=== PATIENT | male | born 1970 | race Caucasian/White ===

== ENCOUNTER 2017-03-08 08:11 | Outpatient (CLI) | payer BC ==
[2017-03-08 09:27] LABS: ALBUMIN/GLOBULIN RATIO 1.6 (1.0-2.2); BILIRUBIN,TOTAL 0.9 mg/dL (0.2-1.0); BUN - BLOOD UREA NITROGEN 10 mg/dL (6-20); CALCIUM 9.2 mg/dL (8.5-10.3); CARBON DIOXIDE - CO2 27 mmol/L (21-32); CHLORIDE 104 mmol/L (101-111); CHOL/HDL RATIO 3.7 (<5.0); CHOLESTEROL 185 mg/dL; CREATININE 1.2 mg/dL (0.6-1.2); GFR - MDRD 65 (>89); GLUCOSE 103 mg/dL (70-100); HDL CHOLESTEROL 50 mg/dL; LDL/HDL RATIO 2.5 (<3.6); POTASSIUM 3.9 mmol/L (3.5-5.0); SODIUM 139 mmol/L (135-145); TRIGLYCERIDES 61 mg/dL; VLDL CHOLESTEROL 12 mg/dL
[2017-03-12 19:26] LABS: TEST RESULT REPORT (())
[2017-03-13 00:01] LABS: HSV 1 IGG INDEX <0.90 INDEX (()); HSV 1/2 IGM INDEX <0.90 INDEX (()); HSV 2 IGG INDEX <0.90 INDEX (())
== END 2017-03-08 08:12 | disposition home or self-care (01) ==
LOC: LAB 08:11
PROVIDERS: ATTEND Physician Assistant
DX: Z00.00 Encounter for general adult medical examination without abnormal findings (principal); A64 Unspecified sexually transmitted disease; R68.82 Decreased libido; I10 Essential (primary) hypertension; E78.5 Hyperlipidemia, unspecified
CPT/HCPCS: 36415; 80053; 80061; 80074; 81599; 84153; 84402; 84403; 86694; 86695; 86696; 87389; 87491; 87591

== ENCOUNTER 2018-01-30 07:31 | Outpatient (CLI) | END 2018-01-30 07:32 | disposition home or self-care (01) ==

== ENCOUNTER 2018-02-09 08:51 | Outpatient (CLI) | payer BC ==
[2018-02-09 11:47] LABS: INR 1.1 (0.8-1.2); PT - PROTHROMBIN TIME 12.6 secs (9.9-12.6)
== END 2018-02-09 08:52 | disposition home or self-care (01) ==
LOC: LAB.F 08:51
PROVIDERS: ATTEND Physician Assistant
DX: I82.409 Acute embolism and thrombosis of unspecified deep veins of unspecified lower extremity (principal)
CPT/HCPCS: 36415; 85610

== ENCOUNTER 2018-02-26 16:14 | Outpatient (CLI) | payer BC ==
[2018-02-26 18:15] LABS: INR 1.1 (0.8-1.2); PT - PROTHROMBIN TIME 12.9 secs (9.9-12.6)
== END 2018-02-26 16:15 | disposition home or self-care (01) ==
LOC: LAB.F 16:14
PROVIDERS: ATTEND Physician Assistant
DX: I82.409 Acute embolism and thrombosis of unspecified deep veins of unspecified lower extremity (principal)
CPT/HCPCS: 36415; 85610

== ENCOUNTER 2018-11-04 13:18 | Outpatient (CLI) | payer BC ==
[2018-11-04 18:25] LABS: BASOPHILS % (AUTO) 0.5 %; EOSINOPHILS # (AUTO) 0.1 10^3/uL (0.0-0.7); EOSINOPHILS % (AUTO) 1.8 %; HGB - HEMOGLOBIN 15.9 g/dL (14.0-18.0); LYMPHOCYTES # (AUTO) 1.4 10^3/uL (1.5-3.5); LYMPHOCYTES % (AUTO) 30.9 %; MEAN CORPUSCULAR HEMOGLOBIN 31.2 pg (27.0-31.0); MEAN CORPUSCULAR HGB CONC 33.5 g/dL (32.0-36.0); MEAN CORPUSCULAR VOLUME 93.2 fL (80.0-94.0); MONOCYTES # (AUTO) 0.4 10^3/uL (0.0-1.0); NEUTROPHILS # (AUTO) 2.5 10^3/uL (1.5-6.6); NEUTROPHILS % (AUTO) 57.8 %; PLT - PLATELET COUNT 169 10^3/uL (130-450); RED BLOOD COUNT 5.11 10^6/uL (4.70-6.10); RED CELL DISTRIBUTION WIDTH 13.7 % (12.0-15.0); WHITE BLOOD COUNT 4.4 x10^3/uL (4.8-10.8)
[2018-11-04 18:52] LABS: ALBUMIN 4.1 g/dL (3.2-5.5); ALBUMIN/GLOBULIN RATIO 1.5 (1.0-2.2); ALKALINE PHOSPHATASE 40 IU/L (42-121); ALT ALANINE AMINOTRANSFERASE 25 IU/L (10-60); AST ASPARTATE AMINOTRANSFERASE 22 IU/L (10-42); BILIRUBIN,TOTAL 0.8 mg/dL (0.2-1.0); BUN - BLOOD UREA NITROGEN 13 mg/dL (6-20); CALCIUM 9.2 mg/dL (8.5-10.3); CARBON DIOXIDE - CO2 25 mmol/L (21-32); CHLORIDE 103 mmol/L (101-111); CHOL/HDL RATIO 4.7 (<5.0); CHOLESTEROL 221 mg/dL; CREATININE 1.1 mg/dL (0.6-1.2); GFR - MDRD 71 (>89); GLUCOSE 115 mg/dL (70-100); HDL CHOLESTEROL 47 mg/dL; LDL CHOLESTEROL,CALCULATED 144 mg/dL; LDL/HDL RATIO 3.1 (<3.6); SODIUM 136 mmol/L (135-145); TOTAL PROTEIN 6.8 g/dL (6.7-8.2); VLDL CHOLESTEROL 30 mg/dL
== END 2018-11-04 13:19 | disposition home or self-care (01) ==
LOC: LAB.F 13:18
PROVIDERS: ATTEND Internal Medicine
DX: F10.10 Alcohol abuse, uncomplicated (principal); Z13.6 Encounter for screening for cardiovascular disorders
CPT/HCPCS: 36415; 80053; 80061; 83721; 85025

== ENCOUNTER 2019-06-03 15:39 | Outpatient (CLI) | payer OTHER, BC ==
--- NOTE | 2019-06-04 16:02 | XRAY Report ---
Reason: PAIN IN RIGHT THUMB Procedure Date: 06/03/2019 Accession Number: [id number] / [id number] Procedure: XRS - Hand 3 View RT CPT Code: FULL RESULT: EXAM: RIGHT HAND RADIOGRAPHY EXAM DATE: 06/03/2019 03:48 PM. CLINICAL HISTORY: Pain in right thumb. COMPARISON: None. TECHNIQUE: 3 views. FINDINGS: Bones: Surgical pain in the fifth metacarpal appears unremarkable. Possible old ulnar styloid fracture versus congenital variant. No fractures or bone lesions. Joints: Normal. No subluxations. Soft Tissues: Normal. No soft tissue swelling. IMPRESSION: 1. Right thumb appears normal. 2. Previous fifth metacarpal surgery. RADIA
== END 2019-06-03 15:40 | disposition home or self-care (01) ==
LOC: DI.S 15:39
PROVIDERS: ATTEND Nurse Practitioner Family
DX: M79.644 Pain in right finger(s) (principal)

== ENCOUNTER 2019-12-30 17:18 | Outpatient (CLI) | payer BC | END 2019-12-30 17:19 | disposition home or self-care (01) | LOC: COV 17:18 | PROVIDERS: ATTEND Family Medicine | DX: R05 Cough (principal); R50.9 Fever, unspecified; M79.10 Myalgia, unspecified site; R53.83 Other fatigue | CPT/HCPCS: 81599 ==

== ENCOUNTER 2020-09-27 17:11 | Outpatient (CLI) | payer BC ==
--- NOTE | 2020-09-27 18:18 | CT Report ---
PROCEDURE: LUMBAR SPINE WO INDICATIONS: ACUTE LOW BACK PAIN CONCERN FOR DISC RUPTURE, STENOSIS TECHNIQUE: Noncontrast 3 mm thick sections acquired from the T12 level to the sacrum. Sagittal and coronal refo rmats were constructed. For radiation dose reduction, the following was used: automated exposure co ntrol, adjustment of mA and/or kV according to patient size. COMPARISON: None. FINDINGS: Image quality: Excellent. Bones: There is straightening of the normal lumbar lordosis, but otherwise normal bony alignment. N o acute vertebral body compression fractures. 1.2 cm sclerotic lesion in the right ilium adjacent to the sacroiliac joint, and 1 more caudally above the acetabulum. There is spina bifida occulta at S1. Degenerative joint space loss of the left sacroiliac joint and mild spurring. Central spinal caliber is of normal overall caliber. No pars defects. T12-L1: Normal in appearance. L1-L2: Normal in appearance. L2-L3: Normal in appearance. L3-L4: Mild disc height loss and moderate circumferential disc bulge. There is moderate central can al stenosis. Moderate right and mild left foraminal narrowing. L4-L5: Minor disc height loss and minor posterior disc bulge. L5-S1: Mild, chronic appearing disc degeneration and broad-based posterior disc bulge. There are sc attered calcification within the disc. Mild endplate osteophyte causes moderate bilateral foraminal n arrowing but no significant central canal stenosis. Soft tissues: No retroperitoneal masses or hematomas. Incidental note made of calcifications in the spleen consistent with granulomas. Visualized aorta is normal in caliber. IMPRESSION: 1. Mild to moderate degenerative degenerative disc changes from L3 through S1 with a possible moderat e central canal stenosis at the L3-4 level. 2. Moderate foraminal narrowing on the right at L3 and bilaterally at L5-S1. 3. No focal disc herniation visible. 4. For further detail of the neural foraminal openings, MR of the lumbar spine is recommended. 5. Degeneration of the left sacroiliac joint. Reviewed by: Marla Herrera MD on 09/27/2020 5:17 PM [place] Approved by: Marla Herrera MD on 09/27/2020 5:17 PM [place] Station ID: [id number]
== END 2020-09-27 17:12 | disposition home or self-care (01) ==
LOC: DI 17:11
PROVIDERS: ATTEND Nurse Practitioner Family
DX: M51.36 Other intervertebral disc degeneration, lumbar region (principal); M48.061 Spinal stenosis, lumbar region without neurogenic claudication; M51.37 Other intervertebral disc degeneration, lumbosacral region; M47.898 Other spondylosis, sacral and sacrococcygeal region

== ENCOUNTER 2020-10-04 15:09 | Outpatient (CLI) | payer BC ==
--- NOTE | 2020-10-04 15:53 | XRAY Report ---
PROCEDURE: Hip w/Pelvis 2-3V RT INDICATIONS: PAIN IN RIGHT HIP JOINT TECHNIQUE: AP pelvis with lateral view(s) of the right hip(s). COMPARISON: None. FINDINGS: Bones: No fractures or dislocations. Pelvic ring appears intact. No suspicious bony lesions. Mild osseous hypertrophy noted in the hips bilaterally. Soft tissues: The visualized bowel gas pattern is normal. No suspicious soft tissue calcifications. IMPRESSION: Mild bilateral hip osteoarthritis. Reviewed by: Margoth Morley MD, PhD on 10/04/2020 3:52 PM PST Approved by: Margoth Morley MD, PhD on 10/04/2020 3:52 PM PST Station ID: [id number]
== END 2020-10-04 15:10 | disposition home or self-care (01) ==
LOC: DI.S 15:09
PROVIDERS: ATTEND Nurse Practitioner Family
DX: M25.551 Pain in right hip (principal); M16.0 Bilateral primary osteoarthritis of hip

== ENCOUNTER 2020-10-19 12:11 | Outpatient (CLI) | payer BC ==
--- NOTE | 2020-10-19 16:17 | MRI Report ---
PROCEDURE: Lumbar Spine W/O INDICATIONS: Spinal stenosis TECHNIQUE: Noncontrast sagittal T1 spin echo and T2 fast echo, sagittal STIR, axial T1 and T2 fast spin echo thr ough the lumbar spine. In cases with scoliosis, additional coronal T2 fast spin echo may be performe d. COMPARISON: Lumbar spine CT 09/27/2020 FINDINGS: Image quality: Excellent. Alignment and Curvature: There is normal bony alignment. Bone Marrow: Marrow is of normal overall signal. No acute vertebral body compression fractures. Spinal Cord: Conus medullaris terminates at the normal level. Visualized cord demonstrates normal s ignal and size. Paraspinous Soft Tissues: No paravertebral masses. T12-L1: Normal in appearance. L1-L2: Normal in appearance. L2-L3: Normal in appearance. L3-L4: Disc desiccation and disc height loss. Diffuse disc bulge and a superimposed broad-based poste rior disc protrusion flatten and indent the ventral thecal sac. Disc material abuts and slightly disp laces the descending L4 nerve roots within both subarticular zones. Foraminal components of the disc bulge contribute to moderate bilateral neural foraminal stenosis in conjunction with neural foraminal collapse related to disc height loss. L4-L5: Disc desiccation and disc height loss. Cervical vertebral disc bulge and a superimposed broa d-based posterior disc protrusion flattening the ventral thecal sac. No mass effect upon the traversi ng L5 nerve roots. Mild bilateral neural foraminal stenosis due to foraminal components of the disc b ulge. L5-S1: Central disc protrusion flattens and indents the ventral thecal sac. Mild mass effect upon the descending S1 nerve roots. Mild bilateral neural foraminal stenosis related to foraminal components of the disc bulge. IMPRESSION: Degenerative changes from L3-L4 through L5-S1, similar to 09/27/2020 CT examination.. Reviewed by: Jarvis Rob MD on 10/19/2020 4:16 PM PST Approved by: Jarvis Rob MD on 10/19/2020 4:16 PM PST Station ID: [id number]
--- NOTE | 2020-10-19 17:09 | MRI Report ---
PROCEDURE: Hip RT W/O INDICATIONS: PAIN IN R HIP TECHNIQUE: Noncontrast coronal T1 spin echo and STIR through the bony pelvis. Coronal and axial T2 fast spin ec ho with fat saturation, sagittal T1 spin echo, and oblique axial T2 fast spin echo with fat saturatio n through the hip. COMPARISON: None. FINDINGS: Image quality: Excellent. Bones and joints: Asymmetric right worse than left bilateral hip joint osteoarthritic changes are see n with superior joint space narrowing and subchondral sclerosis. No intraosseous lesions or fractures . No avascular necrosis of the femoral heads. The visualized lower lumbar spine appears normally al igned. Tendons: The gluteus medius and minimus tendons appear intact, without associated muscle atrophy. T he iliopsoas tendon appears intact, without adjacent bursal fluid collections. The origin of the ham string tendon is intact at the ischial tuberosity. Labrum and cartilage: There is suggestion of superior anterior right hip labral tear with tiny adjace nt 2 mm perilabral cyst. Diffuse thinning of cartilage along right femoral head is seen. The alpha an gle of the femur is within normal limits at less than 55 degrees. Soft tissues: Visualized muscles demonstrate normal bulk and internal signal. The proximal sciatic neurovascular bundle appears normal adjacent to the hamstring tendons. No free pelvic fluid. Bladde r wall thickness is normal. Genitourinary structures and bowel loops appear normal where visualized. IMPRESSION: 1. Asymmetric right worse than left bilateral hip joint osteoarthritis. No fracture or dislocation. N o evidence of avascular necrosis. 2. Focal superior anterior right hip labral tear with a tiny adjacent perilabral cyst. 3. No gross muscle or tendon signal abnormality. Reviewed by: Igor George MD on 10/19/2020 5:08 PM PST Approved by: Igor George MD on 10/19/2020 5:08 PM PST Station ID: [id number]
== END 2020-10-19 12:12 | disposition home or self-care (01) ==
LOC: DI 12:11
PROVIDERS: ATTEND Nurse Practitioner Family
DX: M51.36 Other intervertebral disc degeneration, lumbar region (principal); M48.061 Spinal stenosis, lumbar region without neurogenic claudication; M51.26 Other intervertebral disc displacement, lumbar region; M51.27 Other intervertebral disc displacement, lumbosacral region; M48.07 Spinal stenosis, lumbosacral region; M16.0 Bilateral primary osteoarthritis of hip; S73.191A Other sprain of right hip, initial encounter; M71.351 Other bursal cyst, right hip

== ENCOUNTER 2021-06-15 07:56 | Outpatient (CLI) | payer BC ==
--- NOTE | 2021-06-15 08:24 | XRAY Report ---
PROCEDURE: Chest 2 View X-Ray INDICATIONS: CHEST PAIN TECHNIQUE: 2 view(s) of the chest. COMPARISON: Reference is made to the chest radiograph report dated November 06, 2011. FINDINGS: SUPPORT DEVICES: None. LUNGS/PLEURA: Blunting of the left costophrenic sulcus, which may reflect pleural fluid and/or a pneu mamadou infiltrate. The right lung is well aerated. No pneumothorax. MEDIASTINUM: The cardiomediastinal silhouette is within normal limits. BONES/SOFT TISSUES: No acute abnormality. IMPRESSION: 1.Small right pleural effusion and/or pneumonic infiltrate. Reviewed by: Justin Carbajal MD on 06/15/2021 8:23 AM PDT Approved by: Justin Carbajal MD on 06/15/2021 8:23 AM PDT Station ID: [id number]
== END 2021-06-15 07:57 | disposition home or self-care (01) ==
LOC: DI.S 07:56
DX: R91.8 Other nonspecific abnormal finding of lung field (principal)

== ENCOUNTER 2021-08-14 19:48 | Outpatient (CLI) | payer OTHER, BC ==
--- NOTE | 2021-08-14 20:41 | Ultrasound Report ---
PROCEDURE: Duplex Ext Veins Right INDICATIONS: PAIN IN RIGHT LEG TECHNIQUE: Real-time imaging, as well as color and pulse Doppler interrogation, were performed of the lower extr emity deep veins from the inguinal ligament to the popliteal fossa. COMPARISON: None. FINDINGS: The deep veins are normally compressible, and free of intraluminal thrombus. Color and pu lse Doppler demonstrate normal phasic intraluminal flow. There is normal augmentation response to di stal compression maneuver. Fat-containing right inguinal hernia. IMPRESSION: No evidence of right lower extremity DVT. Fat-containing right inguinal hernia. Reviewed by: Maximino Tom MD on 08/14/2021 8:40 PM PST Approved by: Maximino Tom MD on 08/14/2021 8:40 PM PST Station ID: [id number]
== END 2021-08-14 19:49 | disposition home or self-care (01) ==
LOC: DI 19:48
PROVIDERS: ATTEND Nurse Practitioner Family
DX: M79.604 Pain in right leg (principal); K40.90 Unilateral inguinal hernia, without obstruction or gangrene, not specified as recurrent

== ENCOUNTER 2021-09-14 10:36 | Outpatient (CLI) | payer OTHER, BC ==
[2021-09-14] MEDS ORDERED: IOVERSOL 320 100 ML VIAL IVP ONE ×2 (10:53→12:13)
[2021-09-14 11:33] LABS: CREATININE 1.4 mg/dL (0.6-1.2)
[2021-09-14] MEDS ORDERED: IOPAMIDOL-300 50 ML VIAL PO ONE (12:13)
--- NOTE | 2021-09-14 16:48 | CT Report ---
PROCEDURE: ANGIO CHEST W/WO INDICATIONS: PULMONARY EMBOLISM CONTRAST: IV CONTRAST: Optiray 320 ml: 80 PO CONTRAST: *NO PO CONTRAST TECHNIQUE: After the administration of intravenous contrast, 2 mm axial images were acquired from the pulmonary apices to the posterior costophrenic angles during the arterial phase. In addition, 1 mm lung kernel and 5 mm soft tissue kernel reconstructions were performed. 3-dimensional coronal oblique maximum int ensity projection (MIP) reformats, 8 mm axial MIP, and 5 mm coronal and sagittal MPR reformats were t hen performed through the thorax. For radiation dose reduction, the following was used: automated exp osure control, adjustment of mA and/or kV according to patient size. COMPARISON: None FINDINGS: Image quality: Excellent. Pulmonary arteries: Pulmonary arteries are normal in size, and demonstrate no intraluminal filling d efects to suggest central pulmonary embolism. Lungs and pleura: Lungs are clear. There is a 9 mm nodular groundglass opacity in the right middle l obe series 6 image 204. No pleural effusions or pneumothorax. Central and peripheral airways are pat ent. Mediastinum: Heart size is normal, without pericardial effusion. No mediastinal or hilar adenopathy . Thoracic aorta is normal in caliber and enhancement. Esophagus is normal in caliber, without hiat al hernia. Bones and chest wall: No suspicious bony lesions. Ribs and thoracic spine appear intact throughout. No axillary or supraclavicular adenopathy. The thyroid is normal in size and there are no incident al findings. Abdomen: Visualized upper abdominal solid organs appear normal in the early arterial phase of enhanc ement. IMPRESSION: 1. No pulmonary embolism. 2. 9 mm right middle lobe groundglass opacity. No prior imaging is available for comparison. Recommen d comparison to prior studies if available to determine long-term stability. If no prior imaging is a vailable, recommend follow-up CT in 3 months to confirm persistence then annual follow-up for 3 years . Reviewed by: Carroll Reddy on 09/14/2021 4:47 PM PST Approved by: Carroll Reddy on 09/14/2021 4:47 PM PST Station ID: [id number]
== END 2021-09-14 10:37 | disposition home or self-care (01) ==
LOC: DI 10:36
PROVIDERS: ATTEND Nurse Practitioner Family
DX: I26.99 Other pulmonary embolism without acute cor pulmonale (principal); R91.8 Other nonspecific abnormal finding of lung field
CPT/HCPCS: 36415; 71275; 82565; Q9967

== ENCOUNTER 2021-12-22 07:49 | Outpatient (CLI) | payer OTHER, BC ==
[2021-12-22 08:25] LABS: CALCIUM 9.3 mg/dL (8.5-10.3); CREATININE 1.3 mg/dL (0.6-1.2); POTASSIUM 3.9 mmol/L (3.5-5.0)
[2021-12-22] MEDS ORDERED: IOPAMIDOL-300 100 ML VIAL ONE (09:26)
[2021-12-22] MEDS ORDERED: IOPAMIDOL-300 100 ML VIAL IVP ONE (10:37)
--- NOTE | 2021-12-22 10:46 | CT Report ---
PROCEDURE: ANGIO CHEST W/WO INDICATIONS: PULMONARY EMBOLISM CONTRAST: IV CONTRAST: Isovue 300 ml: 80 PO CONTRAST: *NO PO CONTRAST TECHNIQUE: After the administration of intravenous contrast, 2 mm axial images were acquired from the pulmonary apices to the posterior costophrenic angles during the arterial phase. In addition, 1 mm lung kernel and 5 mm soft tissue kernel reconstructions were performed. 3-dimensional coronal oblique maximum int ensity projection (MIP) reformats, 8 mm axial MIP, and 5 mm coronal and sagittal MPR reformats were t hen performed through the thorax. For radiation dose reduction, the following was used: automated exp osure control, adjustment of mA and/or kV according to patient size. COMPARISON: 09/14/2021 CT examination. FINDINGS: Image quality: Excellent. Pulmonary arteries: Pulmonary arteries are normal in size, and demonstrate no intraluminal filling d efects to suggest central pulmonary embolism. Lungs and pleura: Lungs are clear. No pleural effusions or pneumothorax. Central and peripheral ai rways are patent. Mediastinum: Heart size is normal, without pericardial effusion. No mediastinal or hilar adenopathy . Thoracic aorta is normal in caliber and enhancement. Esophagus is normal in caliber, without hiat al hernia. Bones and chest wall: No suspicious bony lesions. Ribs and thoracic spine appear intact throughout. No axillary or supraclavicular adenopathy. The thyroid is normal in size and there are no incident al findings. Abdomen: Portions of the upper abdomen demonstrate scattered hepatosplenic calcifications. IMPRESSION: 1. No evidence of pulmonary embolus. 2. Remote granulomatous disease. 3. Resolution of previously seen right middle lobe groundglass nodule. CLINICAL RECOMMENDATION STATEMENTS: In patients <35 years with an ITN detected on CT, MRI, or extrathyroidal ultrasound, the Committee re commends further evaluation with dedicated thyroid ultrasound if the nodule is "e1 cm and has no susp icious imaging features, and if the patient has normal life expectancy. In patients "e35 years with an ITN detected on CT, MRI, or extrathyroidal ultrasound, the Committee r ecommends further evaluation with dedicated thyroid ultrasound if the nodule is "e1.5 cm and has no s uspicious imaging features, and if the patient has normal life expectancy. (ACR, 2014) Reviewed by: Maximino Tom MD on 12/22/2021 10:44 AM PDT Approved by: Maximino Tom MD on 12/22/2021 10:44 AM PDT Station ID: [id number]
== END 2021-12-22 07:50 | disposition home or self-care (01) ==
LOC: LAB 07:49
PROVIDERS: ATTEND Nurse Practitioner Family
DX: I26.99 Other pulmonary embolism without acute cor pulmonale (principal); R06.09 Other forms of dyspnea; J84.10 Pulmonary fibrosis, unspecified
CPT/HCPCS: 36415; 71275; 80048; Q9967

== ENCOUNTER 2022-01-17 16:19 | Outpatient (CLI) | payer OTHER, BC | END 2022-01-17 16:20 | disposition home or self-care (01) | LOC: DI 16:19 | PROVIDERS: ATTEND Nurse Practitioner Family | DX: R06.09 Other forms of dyspnea (principal); I77.810 Thoracic aortic ectasia | CPT/HCPCS: 93306 ==

== ENCOUNTER 2022-01-22 14:12 | Outpatient (CLI) | payer OTHER, BC ==
--- NOTE | 2022-01-22 15:58 | Ultrasound Report ---
PROCEDURE: Ankle Brachial Index INDICATIONS: EDEMA TECHNIQUE: Ankle-brachial indices were obtained bilaterally and recorded. COMPARISONS: None. FINDINGS: Right ankle brachial index (AMAYA): 1.2 Left ankle brachial index (MAAYA): 1.2 IMPRESSION: Normal exam. Reviewed by: Estefanía Ascencio MD on 01/22/2022 3:57 PM PDT Approved by: Estefanía Ascencio MD on 01/22/2022 3:57 PM PDT Station ID: [id number]
--- NOTE | 2022-01-22 16:10 | Ultrasound Report ---
PROCEDURE: Duplex Ext Veins Right INDICATIONS: EDEMA TECHNIQUE: Real-time imaging, as well as color and pulse Doppler interrogation, were performed of the lower extr emity deep veins from the inguinal ligament to the popliteal fossa. COMPARISON: None. FINDINGS: The deep veins are normally compressible, and free of intraluminal thrombus. Color and pu lse Doppler demonstrate normal phasic intraluminal flow. There is normal augmentation response to di stal compression maneuver. Deep system reflux is noted in the right common femoral vein, measuring 1.2 seconds. Right greater sa phenous vein reflux measures 1.5 seconds. IMPRESSION: 1. No evidence of deep venous thrombosis, right lower extremity. 2. There is deep system valvular reflux and superficial system valvular reflux, as well. Reviewed by: Juan Ramon Joseph MD on 01/22/2022 4:09 PM PDT Approved by: Juan Ramon Joseph MD on 01/22/2022 4:09 PM PDT Station ID: [id number]
--- NOTE | 2022-01-22 16:17 | Ultrasound Report ---
PROCEDURE: Duplex Lwr Ext Arterial RT INDICATIONS: EDEMA TECHNIQUE: Color and pulse Doppler interrogation was performed of the right lower extremity arterial system, wit h image documentation. COMPARISON: None FINDINGS: Common femoral artery: 65 cm/sec, with triphasic flow. Deep femoral artery: 55 cm/sec, with triphasic flow. Proximal superficial femoral artery: 78 cm/sec, with triphasic flow. Mid superficial femoral artery: 77 cm/sec, with triphasic flow. Distal superficial femoral artery: 48 cm/sec, with triphasic flow. Popliteal artery: 45 cm/sec, with triphasic flow. Posterior tibial artery: 84 cm/sec, with triphasic flow. Anterior tibial artery/dorsalis pedis: 36 cm/sec, with triphasic flow. De La Fuente-scale imaging description: Negative IMPRESSION: No evidence of arterial insufficiency to the right lower extremity. Reviewed by: Maximino Tom MD on 01/22/2022 4:16 PM PDT Approved by: Maximino Tom MD on 01/22/2022 4:16 PM PDT Station ID: [id number]
== END 2022-01-22 14:13 | disposition home or self-care (01) ==
LOC: DI 14:12
PROVIDERS: ATTEND Nurse Practitioner Family
DX: R60.0 Localized edema (principal)
CPT/HCPCS: 93922

== ENCOUNTER 2022-05-22 09:18 | Outpatient (CLI) | payer OTHER | END 2022-05-22 09:19 | disposition home or self-care (01) | LOC: DI 09:18 | PROVIDERS: ATTEND Emergency Medicine | DX: I07.1 Rheumatic tricuspid insufficiency (principal); U09.9 Post COVID-19 condition, unspecified; R60.0 Localized edema; R06.00 Dyspnea, unspecified; Z86.711 Personal history of pulmonary embolism | CPT/HCPCS: 93306 ==

== ENCOUNTER 2022-05-22 09:20 | Outpatient (CLI) | payer OTHER, BC ==
[2022-05-22] MEDS ORDERED: ALBUTEROL 1 PUFF INH STA (13:48)
== END 2022-05-22 09:21 | disposition home or self-care (01) ==
LOC: RT 09:20
PROVIDERS: ATTEND Emergency Medicine
DX: U09.9 Post COVID-19 condition, unspecified (principal)
CPT/HCPCS: 94060; 94727; 94729

== ENCOUNTER 2022-11-06 13:39 | Outpatient (CLI) | payer OTHER ==
[2022-11-06 14:01] LABS: CREATININE 1.3 mg/dL (0.6-1.2)
[2022-11-06] MEDS ORDERED: iohexoL-300 100 ML VIAL ONE (15:18)
--- NOTE | 2022-11-06 15:35 | Ultrasound Report ---
PROCEDURE: Duplex Ext Veins Right INDICATIONS: PAIN IN RIGHT THIGH TECHNIQUE: Real-time imaging, as well as color and pulse Doppler interrogation, were performed of the lower extr emity deep veins from the inguinal ligament to the popliteal fossa. COMPARISON: 01/22/2022. FINDINGS: Nonocclusive deep venous thrombosis present in one of the posterior tibial veins, proximal -mid. Remainder of the deep veins are patent. Superficial thrombus also present within the greater sa phenous vein in the mid thigh. IMPRESSION: 1. Nonocclusive deep venous thrombosis present in one of the posterior tibial veins. 2. Superficial venous thrombosis also present in the greater saphenous vein. Preliminary results conveyed to Cathie GRANADOS by the brick stacker at 1440 hours 11/06/2022. Reviewed by: Ayan Corea MD on 11/06/2022 3:33 PM PDT Approved by: Ayan Corea MD on 11/06/2022 3:33 PM PDT Station ID: [id number]
--- NOTE | 2022-11-06 16:05 | CT Report ---
PROCEDURE: ANGIO CHEST W/WO INDICATIONS: CHEST PAIN CONTRAST: 80mL Omni 300 TECHNIQUE: After the administration of intravenous contrast, 2 mm axial images were acquired from the pulmonary apices to the posterior costophrenic angles during the arterial phase. In addition, 1 mm lung kernel and 5 mm soft tissue kernel reconstructions were performed. 3-dimensional coronal oblique maximum int ensity projection (MIP) reformats, 8 mm axial MIP, and 5 mm coronal and sagittal MPR reformats were t hen performed through the thorax. For radiation dose reduction, the following was used: automated exp osure control, adjustment of mA and/or kV according to patient size. COMPARISON: CT angiogram of the chest 12/22/2021. FINDINGS: Pulmonary arteries: Right upper lobe segmental pulmonary embolism present. Lungs and pleura: No consolidation, pleural effusions or pneumothorax. Mediastinum: No pericardial effusion. Thoracic aorta is normal in caliber. Esophagus is normal in caliber. RV:LV ratio < 1. Bones and chest wall: Multilevel degenerative change of the visualized spine. No axillary or suprac lavicular adenopathy. Abdomen: Hepatic and splenic calcifications present compatible with prior granulomatous disease. IMPRESSION: Right upper lobe segmental pulmonary embolism. Results discussed with Lulu Chowdary MA by Dr. Corea at 1548 hours on 11/06/2022. Patient will be sent to the emergency room per Marylin Frias PA-C. Reviewed by: Ayan Corea MD on 11/06/2022 4:04 PM PDT Approved by: Ayan Corea MD on 11/06/2022 4:04 PM PDT Station ID: [id number]
[2022-11-06] MEDS ORDERED: iohexoL-300 100 ML VIAL IVP ONE (17:13)
== END 2022-11-06 13:40 | disposition home or self-care (01) ==
LOC: LAB 13:39
PROVIDERS: ATTEND Nurse Practitioner Family
DX: I26.99 Other pulmonary embolism without acute cor pulmonale (principal); I82.441 Acute embolism and thrombosis of right tibial vein; I82.811 Embolism and thrombosis of superficial veins of right lower extremity
CPT/HCPCS: 36415; 82565

== ENCOUNTER 2022-11-06 16:14 | Emergency (ER) | payer OTHER, BC ==
[2022-11-06 16:32] VITALS: BP 177/108
[2022-11-06] MEDS ORDERED: ENOXAPARIN 100 MG/ML SYRINGE SUBQ STA (17:02)
--- NOTE | 2022-11-06 17:48 | ED Physician Documentation ---
PD HPI DYSPNEA - Stated complaint Stated Complaint: PAIN IN RT LEG, SOA - Chief complaint Chief Complaint: Cardiac - History obtained from History obtained from: Patient - Additional information Additional information: This is a 51-year-old male with a past medical history of pulmonary embolus, no longer on anticoagulation who presents from the radiology department after he was found to have pulmonary emboli on CT scanning today. He had been following with his PCP for mild shortness of breath intermittent over the last couple weeks as well as right leg pain and mild swelling. He had a ultrasound today which showed a right calf DVT and he actually has already spoken with his PCP who has prescribed Xarelto for the patient however then he went for his CT scan which also showed a blood clot and the radiologist called the office but they were closed therefore the patient was sent to the ER. He has no new symptoms, states he feels fine otherwise, was out eating pizza when he got the call to come into the ER for evaluation. He is not currently having any chest pain, denies any current shortness of breath though does note mild shortness of breath intermittently with activity. Has not had any cough, congestion, abdominal pain nausea vomiting or diarrhea. He has not had any lower extremity redness or signs of infection. He denies any recent immobility, surgeries, long travel. He states that he already has seen a "coagulation doctor" who apparently told him he had no signs of hypercoagulability and it was thought that him that his prior PE was induced by a COVID-vaccine. He only completed a few months of anticoagulation but for was stopped as it was thought to be provoked. Review of Systems Constitutional: reports: Reviewed and negative, Other (All other systems were reviewed and are negative except as described in HPI.) PD PAST MEDICAL HISTORY - Past Medical History Past Medical History: Yes Cardiovascular: Hypertension, Deep vein thrombosis, Pulmonary embolism GI: GERD - Past Surgical History Past Surgical History: Yes - Present Medications Home Medications: Ambulatory Orders Medication Instructions Recorded Confirmed Amoxicillin/Potassium Clav 1 each PO Q12H #10 tablet 10/15/16 [Augmentin 875-125 Tablet] Rivaroxaban [Xarelto] 15 mg PO BID #42 tablet 11/06/22 - Allergies Allergies/Adverse Reactions: Allergies Allergy/AdvReac Type Severity Reaction Status Date / Time No Known Drug Allergies Allergy Verified 11/06/22 16:32 - Social History Does the pt smoke?: No Smoking Status: Never smoker Does the pt drink ETOH?: No Does the pt have substance abuse?: No - Immunizations Immunizations are current?: Yes - POLST Patient has POLST: No PD ED PE NORMAL - Vitals Vital signs reviewed: Yes - General General: Alert and oriented X 3, No acute distress, Well developed/nourished, Other (Very pleasant and conversant, currently eating a piece of pizza, and ambulating about the room.) - HEENT HEENT: Atraumatic, Moist mucous membranes - Neck Neck: Supple, no meningeal sign, No JVD - Cardiac Cardiac: RRR, No murmur, No gallop, No rub - Respiratory Respiratory: No respiratory distress, Clear bilaterally - Abdomen Abdomen: Normal bowel sounds, Soft, Non tender, Non distended - Derm Derm: Normal color, Warm and dry, No rash - Extremities Extremities: No deformity, Normal ROM s pain, Other (Right calf tenderness and mild tenderness behind the right knee.) - Neuro Neuro: Alert and oriented X 3 Eye Opening: Spontaneous Motor: Obeys Commands Verbal: Oriented GCS Score: 15 - Psych Psych: Normal mood, Normal affect Results - Vitals Vitals: Vital Signs - 24 hr 11/06/22 16:24 Temperature 36.8 C Heart Rate 65 Respiratory 20 Rate Blood Pressure 177/108 H O2 Saturation 96 Oxygen O2 Source Room air - EKG (time done) No standard instances EKG releavant findings:: EKG personally interpreted by author of this note. Relevant findings are: Rate: Rate (enter#) (60) Rhythm: NSR [place]: LAD Intervals: Normal RI QRS: Normal Ischemia: Normal ST segments Computer interpretation: Agree with computer PD Medical Decision Making - ED course Complexity details: reviewed results, re-evaluated patient, d/w patient ED course: 51-year-old male presented from the radiology department after CT revealed PE. The patient has been following with his PCP for this and is already been prescribed Xarelto. He has no hypoxia at this time, no chest pain, And has no sign of right heart strain on CT or High clot burden. It sounds as though his PCP is already prescribed Xarelto however I will give him another prescription in the event that this has not been done yet. We will give him a dose of Lovenox here tonight to get him started and then he will begin the Xarelto tonight or tomorrow morning. He has follow-up scheduled with his PCP in 2 weeks, he was advised to keep this.I did discuss with patient as this was his second PE/DVT, I do think he may need lifelong anticoagulation but recommended that he discuss with his primary doctor and travel counselor [employer]. Return precautions reviewed with the patient if he were to have increasing shortness of breath or chest pain or other new concerns. Departure - Departure Disposition: Home, Self Care Clinical Impression: Pulmonary embolism Qualifiers: Pulmonary embolism type: other Chronicity: acute Acute cor pulmonale presence: without acute cor pulmonale Qualified Code(s): I26.99 - Other pulmonary embolism without acute cor pulmonale Right leg DVT Qualifiers: Affected thrombotic vein of extremity: calf muscle vein Chronicity: acute Qualified Code(s): I82.461 - Acute embolism and thrombosis of right calf muscular vein Condition: Good Instructions: Embolism Pulmonary Dc Prescriptions: Rivaroxaban [Xarelto] 15 mg PO BID #42 tablet Comments: You have a pulmonary embolus and a right calf blood clot. I have started you on Xarelto and you will take this twice a day for 3 weeks and then resume the 20 mg once daily dosing. Please follow-up with your primary doctor as scheduled. Return if you have new or worsening symptoms. Discharge Date/Time: 11/06/22 17:11
== END 2022-11-06 17:11 | disposition home or self-care (01) ==
LOC: ED 16:14
DX: I26.99 Other pulmonary embolism without acute cor pulmonale (principal); I82.441 Acute embolism and thrombosis of right tibial vein; I82.811 Embolism and thrombosis of superficial veins of right lower extremity
CPT/HCPCS: 36415; 71275; 82565; 93005; 93971; 96372; 99283; 99284; J1650; Q9967

== ENCOUNTER 2023-06-27 17:02 | Outpatient (CLI) | payer OTHER, BC ==
[2023-06-27 17:31] LABS: BASOPHILS % (AUTO) 0.5 %; EOSINOPHILS # (AUTO) 0.1 10^3/uL (0.0-0.7); EOSINOPHILS % (AUTO) 1.2 %; HCT - HEMATOCRIT 47.7 % (42.0-52.0); HGB - HEMOGLOBIN 16.1 g/dL (14.0-18.0); LYMPHOCYTES # (AUTO) 1.8 10^3/uL (1.5-3.5); MEAN CORPUSCULAR HEMOGLOBIN 32.4 pg (27.0-31.0); MEAN CORPUSCULAR HGB CONC 33.8 g/dL (32.0-36.0); MEAN PLATELET VOLUME 10.9 fL (7.4-11.4); MONOCYTES # (AUTO) 0.5 10^3/uL (0.0-1.0); NEUTROPHILS # (AUTO) 3.4 10^3/uL (1.5-6.6); PLT - PLATELET COUNT 189 10^3/uL (130-450); RED BLOOD COUNT 4.97 10^6/uL (4.70-6.10); RED CELL DISTRIBUTION WIDTH 12.5 % (12.0-15.0); WHITE BLOOD COUNT 5.8 x10^3/uL (4.8-10.8)
[2023-06-27 17:50] LABS: ALBUMIN 4.5 g/dL (3.2-5.5); ALKALINE PHOSPHATASE 40 IU/L (42-121); ALT ALANINE AMINOTRANSFERASE 31 IU/L (10-60); AST ASPARTATE AMINOTRANSFERASE 23 IU/L (10-42); BILIRUBIN,TOTAL 0.4 mg/dL (0.2-1.0); BUN - BLOOD UREA NITROGEN 16 mg/dL (6-20); CALCIUM 9.7 mg/dL (8.5-10.3); CARBON DIOXIDE - CO2 27 mmol/L (21-32); CHLORIDE 102 mmol/L (101-111); CHOL/HDL RATIO 4.9 (<5.0); CHOLESTEROL 196 mg/dL; CREATININE 1.6 mg/dL (0.6-1.3); CRP - C-REACTIVE PROTEIN < 0.5 mg/dL (<0.5); GFR - MDRD 45 (>89); GLUCOSE 92 mg/dL (74-104); HDL CHOLESTEROL 40 mg/dL; LDL CHOLESTEROL,CALCULATED 103 mg/dL; LDL/HDL RATIO 2.6 (<3.6); POTASSIUM 4.2 mmol/L (3.5-4.5); SODIUM 135 mmol/L (135-145); TOTAL PROTEIN 6.8 g/dL (6.4-8.9); TRIGLYCERIDES 266 mg/dL (48-352); VLDL CHOLESTEROL 53 mg/dL
[2023-06-27 18:49] LABS: THYROID STIMULATING HORMONE 7.22 uIU/mL (0.34-5.60)
== END 2023-06-27 17:03 | disposition home or self-care (01) ==
LOC: LAB 17:02
PROVIDERS: ATTEND Nurse Practitioner Family
DX: E03.9 Hypothyroidism, unspecified (principal); I10 Essential (primary) hypertension; E78.5 Hyperlipidemia, unspecified
CPT/HCPCS: 36415; 80053; 80061; 83721; 84439; 84443; 85025; 85651; 86140

== ENCOUNTER 2023-12-25 11:29 | Outpatient (CLI) | payer BC, OTHER ==
[2023-12-25 15:27] LABS: ALBUMIN 4.4 g/dL (3.2-5.5); ALBUMIN/GLOBULIN RATIO 1.6 (1.0-2.2); BILIRUBIN,TOTAL 0.6 mg/dL (0.2-1.0); CALCIUM 10.2 mg/dL (8.5-10.3); CREATININE 1.2 mg/dL (0.6-1.3); TOTAL PROTEIN 7.2 g/dL (6.4-8.9)
[2023-12-25 15:52] LABS: THYROID STIMULATING HORMONE 2.4 uIU/mL (0.34-5.60)
== END 2023-12-25 11:30 | disposition home or self-care (01) ==
LOC: LAB.S 11:29
PROVIDERS: ATTEND Nurse Practitioner Family
DX: I10 Essential (primary) hypertension (principal); E03.9 Hypothyroidism, unspecified
CPT/HCPCS: 36415; 80053; 84443

== ENCOUNTER 2024-02-02 16:32 | Outpatient (CLI) | payer BC, OTHER ==
--- NOTE | 2024-02-02 17:38 | Ultrasound Report ---
PROCEDURE: Duplex Ext Veins Right INDICATIONS: HIST OF DVT TECHNIQUE: Real-time imaging, as well as color and pulse Doppler interrogation, were performed of the lower extr emity deep veins from the inguinal ligament to the popliteal fossa. Attempted visualization of the ca lf veins was performed. COMPARISON: Duplex ultrasound 11/06/2022 FINDINGS: The deep veins are normally compressible.. Color and pulse Doppler demonstrate normal pha sic intraluminal flow. There is normal augmentation response to distal compression maneuver. It is noted that there is small residual nonocclusive thrombus in the posterior tibial vein, noting decreas ed compared to prior exam. IMPRESSION: Persistent although less prominent appearance of nonocclusive thrombus in the posterior tibial vein. Reviewed by: Estefanía Ascencio MD on 02/02/2024 5:37 PM PDT Approved by: Estefanía Ascencio MD on 02/02/2024 5:37 PM PDT Station ID: [id number]
== END 2024-02-02 16:33 | disposition home or self-care (01) ==
LOC: DI 16:32
PROVIDERS: ATTEND Nurse Practitioner Family
DX: I82.441 Acute embolism and thrombosis of right tibial vein (principal)

== ENCOUNTER 2024-02-19 16:55 | Outpatient (CLI) | payer BC ==
[2024-02-19 17:34] LABS: CREATININE 1.5 mg/dL (0.6-1.3); POTASSIUM 2.9 mmol/L (3.5-4.5)
[2024-02-19] MEDS ORDERED: iohexoL-300 100 ML VIAL ONE (18:08)
[2024-02-19] MEDS: iohexoL-300 100 ML VIAL IVP ONE (18:34)
--- NOTE | 2024-02-19 19:23 | CT Report ---
PROCEDURE: Angio Chest INDICATIONS: DYSPNEA, HIST OF PE CONTRAST: 80ml [id number] TECHNIQUE: After the administration of intravenous contrast, 2 mm axial images were acquired from the pulmonary apices to the posterior costophrenic angles during the arterial phase. In addition, 1 mm lung kernel and 5 mm soft tissue kernel reconstructions were performed. 3-dimensional coronal oblique maximum int ensity projection (MIP) reformats, 8 mm axial MIP, and 5 mm coronal and sagittal MPR reformats were t hen performed through the thorax. For radiation dose reduction, the following was used: automated exp osure control, adjustment of mA and/or kV according to patient size. COMPARISON: 11/06/2022. FINDINGS: Image quality: Excellent. Large vessels: No filling defects within the opacified pulmonary arteries, accounting for motion and contrast timing. No evidence of acute aortic syndrome or aortic aneurysm. Lungs and pleura: No consolidation. No pleural effusions. No pneumothorax. No suspicious pulmonary n odules which require follow up. Mediastinum: Heart size is normal. No pericardial effusion. No large vessel abnormality. No mediastin al adenopathy by size criteria. Chest wall and lower neck: Thyroid is unremarkable. No axillary or supraclavicular adenopathy by size . Bones: No aggressive osseous abnormality. Upper Abdomen: Coarse hepatic and splenic calcifications, likely sequela of prior granulomatous disea se. IMPRESSION: 1.No pulmonary embolus. 2.No acute pulmonary process. Reviewed by: Ezequiel Valdez MD on 02/19/2024 7:21 PM PDT Approved by: Ezequiel Valdez MD on 02/19/2024 7:21 PM PDT Station ID: [id number]
== END 2024-02-19 16:56 | disposition home or self-care (01) ==
LOC: DI 16:55
PROVIDERS: ATTEND Nurse Practitioner Family
DX: R06.00 Dyspnea, unspecified (principal); Z79.01 Long term (current) use of anticoagulants; Z86.711 Personal history of pulmonary embolism; E87.6 Hypokalemia
CPT/HCPCS: 36415; 71275; 80048; 82607; Q9967